=== PATIENT | male | born 1940 | race Caucasian/White ===

== ENCOUNTER 2017-05-10 19:11 | Emergency (ER) | payer OTHER ==
--- NOTE | 2017-05-10 19:43 | EDPHY ---
H & P Stated Complaint: forgetful, fever, headache x3 days - Medical/Surgical History Hx Asthma: No Hx Chronic Respiratory Disease: No Hx Diabetes: Yes Hx Cardiac Disease: Yes Hx Renal Disease: No Hx Cirrhosis: No Hx Alcoholism: No Hx HIV/AIDS: No Hx Splenectomy or Spleen Trauma: No Other PMH: CAD, [place] 2000- stents, pre diabetic, hypothyroid, htn, macular degerneration, cataracts, gout - Social History Smoking Status: Former smoker Time Seen by Provider: 05/10/17 19:38 HPI/ROS: Chief complaint: Fever, headache, cough History of present illness: 76-year-old male presents to the emergency department for fever, headache and cough. Patient is visiting from [place]. He arrived to [place] 3 days ago. He is currently staying in [place]. Since arriving he has felt unwell. Symptoms are progressing. He describes tactile fevers. He has had a headache. He has had a nonproductive cough. Further he reports generalized malaise. Worse with exertion. He denies other associated signs or symptoms including no chest pain, no pain or swelling in the legs. He did start taking Diamox a few days ago to help with acclimatization to altitude. Review of systems: A 10 point review of systems was obtained and other than described above was negative (Edgardo Arora) - Physical Exam Exam: General Appearance: Alert, nontoxic. Eyes: Pupils equal and round no pallor or injection. ENT, Mouth: Tympanic membranes, external auditory canals, external easr and surrounding soft tissue including over the mastoids are unremarkable. Nasopharynx is not injected. There is no rhinorrhea. Oropharynx is not injected. There is no edema. There is no exudate. There is no asymmetry. The uvula is midline. No elevation of the tongue. There is no hoarseness, no drooling, no trismus, no stridor. Respiratory: There are no retractions, lungs are clear to auscultation. Cardiovascular: Regular rate and rhythm. Gastrointestinal: Abdomen is soft and non tender, no masses, bowel sounds normal. Neurological: Alert and oriented x4. Cranial nerves 2-12 grossly intact. Strength and sensation intact and symmetrical. No meningismus Skin: Warm and dry, no rashes. Musculoskeletal: Neck is supple non tender. Extremities are symmetrical, full range of motion. Psychiatric: Patient is oriented X 3, there is no agitation. (Edgardo Arora) Constitutional: Initial Vital Signs Temperature (C) 38.1 C 05/10/17 19:22 Heart Rate 91 05/10/17 19:22 Respiratory Rate 20 05/10/17 19:22 Blood Pressure 126/73 H 05/10/17 19:22 O2 Sat (%) 92 05/10/17 19:22 O2 Delivery Mode Room Air Allergies/Adverse Reactions: No Known Allergies Allergy (Unverified 05/10/17 19:20) Home Medications: Medication Instructions Recorded Allopurinol 05/10/17 Alpha Lipoic Acid 05/10/17 Azithromycin 250 mg PO DAILY 4 Days 05/10/17 B Complex 05/10/17 Coq-10 05/10/17 Esomeprazole Mag Trihydrate 05/10/17 [Nexium] FOLIC ACID 05/10/17 Klor-Con 10 meq (RX) 05/10/17 LORazepam 05/10/17 Levothyroxine [Synthroid 75 mcg 75 mcg PO DAILY06 05/10/17 (*)] Mac[facility]ite [facility] [employer] Tablet 05/10/17 Melatonin 05/10/17 Metformin HCl [Fortamet] 05/10/17 Plavix 05/10/17 Pravastatin Sodium 05/10/17 Spironolactone 05/10/17 Medical Decision Making ED Course/Re-evaluation: Patient is discussed with my secondary supervising physician Dr. Willie Birch. Patient presents to the emergency department for fever, headache, cough and generalized malaise. He is febrile. He is nontoxic. Ultimately I believe his findings are consistent with an infectious disease with fever, white count and what appears to be a pneumonia on chest x-ray. I do believe he is appropriate for outpatient management. He is started on azithromycin. He has been gently hydrated. He is taking oral fluids without difficulty. He is ambulating well without increase in symptoms, his pulse oximetry remains in the mid to high 90s when he ambulates. I do have to wonder if Diamox is contributing to his symptoms with dehydration. Is asked to discontinue this. He is discharged. Home care is discussed. Return precautions given. Patient voiced understanding and agreement with plan. I did discuss the patient with his primary care doctor back in [place], Dr. Orellana. He does note that patient has a history of a left bundle-branch block on his EKG. He is comfortable with plan of action for patient. (Edgardo Arora) Differential Diagnosis: Included but not limited to viral syndrome, upper respiratory tract infections, lower respiratory tract infection including bronchitis, cardiac dysrhythmia, heart failure, ACS, PE, (Edgardo Arora) Other Provider: Addendum: I was notified by the lab patient's respiratory panel is positive for influenza a. I did review the patient's chart. He has had a fever for the past 3 days and is outside the treatment window for Tamiflu. The patient had been started on azithromycin for questionable pneumonia. I have asked the charge nurse to contact the patient informing him of the results of the positive flu test. The patient is instructed to return to the emergency department for any worsening respiratory symptoms or other concerns. (Ed Yuan) - Data Points Laboratory Results: Laboratory Results 05/10/17 19:50 05/10/17 19:50 Microbiology Results: MICROBIOLOGY 05/10/17 21:00 Nasal, Sinus - Swab Respiratory Panel (PCR) - Final Influenza Virus Type A H3 Medications Given: Discontinued Medications Azithromycin (Zithromax) 500 mg PO EDNOW ONE PRN Reason: Protocol Stop: 05/10/17 22:01 Last Admin: 05/10/17 22:02 Dose: 500 mg Sodium Chloride (Ns) 1,000 mls @ 0 mls/hr IV EDNOW ONE; Wide Open PRN Reason: Protocol Stop: 05/10/17 20:47 Last Admin: 05/10/17 20:53 Dose: 1,000 mls Departure - Departure Disposition: Home, Routine, Self-Care Clinical Impression: Pneumonia Qualifiers: Pneumonia type: due to unspecified organism Laterality: unspecified laterality Lung location: unspecified part of lung Qualified Code(s): J18.9 - Pneumonia, unspecified organism Condition: Good Instructions: Pneumonia (ED) Additional Instructions: Follow-up with her primary care doctor when you return home Take all antibiotics as prescribed until finished even feeling better We recommend you discontinue the Diamox due to its side effects If symptoms worsen or new symptoms develop return to the emergency room for recheck Referrals: SU NORMAN [Other] - As per Instructions Prescriptions: Azithromycin 250 mg PO DAILY 4 Days
[2017-05-10 20:08] LABS: % IMMATURE GRANULYOCYTES 0.4 % (0.0-1.1); ABSOLUTE IMMATURE GRANULOCYTES 0.04 10^3/uL (0.00-0.10); ADD DIFF? NO; ADD MORPH? NO; ADD SCAN? NO; ATYPICAL LYMPHOCYTE FLAG 0 (0-99); FRAGMENT RBC FLAG 0 (0-99); HEMATOCRIT 40.3 % (40.0-51.0); HEMOGLOBIN 14.3 g/dL (13.7-17.5); LEFT SHIFT FLG 0 (0-99); LIPEMIA HEMOLYSIS FLAG 90 (0-99); MEAN CELL HEMOGLOBIN 32.9 pg (27.9-34.1); MEAN CELL HEMOGLOBIN CONCENTR. 35.5 g/dL (32.4-36.7); MEAN CELL VOLUME 92.6 fL (81.5-99.8); PLATELET CLUMPS FLAG 0 (0-99); PLATELET COUNT 195 10^3/uL (150-400); RED BLOOD CELL COUNT 4.35 10^6/uL (4.40-6.38); RED CELL DISTRIBUTION WIDTH 12.8 % (11.5-15.2)
--- NOTE | 2017-05-10 20:16 | CPEKG ---
Heart Rate: 83 RR Interval: 723 P-R Interval: 204 QRSD Interval: 142 QT Interval: 396 QTC Interval: 466 P Knifley: -34 QRS Knifley: -62 T Wave Knifley: 98 EKG Severity - ABNORMAL ECG - EKG Impression: SINUS RHYTHM EKG Impression: LEFT BUNDLE BRANCH BLOCK Electronically Signed By: Brett Mondragon 10-May-2017 20:55:15
[2017-05-10 20:17] LABS: COLOR YELLOW; LEUKOCYTE ESTERASE,URINE NEGATIVE (NEGATIVE); MUCUS TRACE /lpf (NONE-1+); NITRITE,URINE NEGATIVE (NEGATIVE)
[2017-05-10 20:18] LABS: ANION GAP 14 mEq/L (8-16); CALCIUM 9.2 mg/dL (8.5-10.4); CARBON DIOXIDE 18 mEq/l (22-31); CHLORIDE 108 mEq/L (97-110); CREATININE 1.4 mg/dL (0.7-1.3); GLOMERULAR FILTRATION RATE 50; GLUCOSE 109 mg/dL (70-100); SODIUM 140 mEq/L (134-144)
[2017-05-10] MEDS ORDERED: NS 1,000 ML IV ONE (20:46)
[2017-05-10] MEDS ORDERED: AZITHROMYCIN 250 MG TAB PO ONE (22:00)
[2017-05-10 22:20] VITALS: TEMP 98.8; O2SAT 95
[2017-05-10 23:07] VITALS: BP 121/69; PULSE 80; RESP 18
== END 2017-05-10 23:07 | disposition home or self-care (01) ==
DX: J18.9 Pneumonia, unspecified organism (principal); I25.10 Atherosclerotic heart disease of native coronary artery without angina pectoris; I10 Essential (primary) hypertension; I25.2 Old myocardial infarction; E86.9 Volume depletion, unspecified; Z87.891 Personal history of nicotine dependence